=== PATIENT | female | born 1940 | race Caucasian/White ===

== ENCOUNTER 2024-06-26 12:30 | Inpatient (IN) | payer OTHER, MEDICARE ==
[2024-06-26 14:24] VITALS: BMI 16.6
[2024-06-26 14:27] LABS: ABSOLUTE IMMATURE GRANULOCYTES 0.02 x10^3/uL (0.0-0.031); BASOPHILS # 0.04 x10^3/uL (0.01-0.08); EOSINOPHIL % 0.9 % (0.7-5.8); EOSINOPHILS # 0.08 x10^3/uL (0.04-0.36); HEMATOCRIT 38.5 % (34.1-44.9); HEMOGLOBIN 12.3 g/dL (11.2-15.7); MCHC 31.9 g/dl (32.2-35.5); MEAN CELL VOLUME 90.4 fl (79.4-94.8); MEAN PLT VOLUME 11.4 fl (9.4-12.3); MONOCYTE # 0.47 x10^3/uL (0.24-0.86); MONOCYTE % 5.5 % (4.7-12.5); PLATELET COUNT 193 x10^3/uL (182-369); RDW 12.9 % (12.5-17.0)
[2024-06-26 14:29] LABS: VENOUS BASE EXCESS 1.7 mmol/L (-2-2); VENOUS O2 SATURATION 50.4 % (70-80); VENOUS PCO2 45.3 mmHg (38-52); VENOUS PH 7.394 (7.310-7.410)
[2024-06-26 14:36] LABS: PROTHROMBIN TIME (PATIENT) 10.9 SEC (9.7-13.0)
[2024-06-26 14:39] LABS: ACTIVATED PTT 31.1 SECONDS (25.2-36.5)
[2024-06-26 14:51] LABS: POTASSIUM 3.8 mmol/L (3.5-5.1)
[2024-06-26 14:59] LABS: ALBUMIN 3.4 g/dl (3.4-5.0); BLOOD UREA NITROGEN 22.8 mg/dL (7-18)
[2024-06-26 15:00] LABS: BILIRUBIN,TOTAL 0.5 mg/dL (0.2-1); TOT PROT 6.5 g/dl (6.4-8.2)
[2024-06-26 15:02] LABS: CREATININE 0.7 mg/dL (0.55-1.3)
[2024-06-26 18:15] LABS: URINE APPEARANCE CLOUDY; URINE BILIRUBIN NEGATIVE (NEGATIVE); URINE COLOR YELLOW; URINE GLUCOSE (UA) NEGATIVE (NEGATIVE); URINE KETONE NEGATIVE (NEGATIVE); URINE LEUK ESTERASE NEGATIVE (NEGATIVE); URINE NITRITE NEGATIVE (NEGATIVE); URINE PROTEIN NEGATIVE (NEGATIVE)
[2024-06-26] MEDS ORDERED: ACETAMINOPHEN 325 MG TABLET (FP) PO PRN (18:52)
[2024-06-26] MEDS ORDERED: MAGNESIUM HYDROX 2400MG/30ML ORAL SUSPENSION 30 ML CUP PO PRN (18:59)
[2024-06-26] MEDS ORDERED: LUMIGAN OD SCH (19:00)
[2024-06-26] MEDS: SODIUM CHLORIDE 1,000 ML IV SCH (19:59)
[2024-06-26] MEDS ORDERED: ACETAMINOPHEN 1000 MG/100 ML BAG IVPB PRN (20:56)
[2024-06-26] MEDS: LABETALOL HCL 100 MG TABLET (FP) PO SCH (21:48)
[2024-06-26 21:50] VITALS: RESP 18
[2024-06-26] MEDS: DOCUSATE SODIUM 100 MG CAPSULE (FP) PO SCH (21:50)
[2024-06-26] MEDS: LATANOPROST 0.005% OPHTH SOLN 2.5ML BOTTLE OD SCH (23:19)
[2024-06-27 08:18] LABS: ABSOLUTE IMMATURE GRANULOCYTES 0.01 x10^3/uL (0.0-0.031); BASOPHILS # 0.05 x10^3/uL (0.01-0.08); EOSINOPHILS # 0.06 x10^3/uL (0.04-0.36); HEMATOCRIT 39.4 % (34.1-44.9); HEMOGLOBIN 12.3 g/dL (11.2-15.7); MCHC 31.2 g/dl (32.2-35.5); MEAN CELL VOLUME 91.4 fl (79.4-94.8); MEAN PLT VOLUME 11.7 fl (9.4-12.3); MONOCYTE # 0.33 x10^3/uL (0.24-0.86); MONOCYTE % 5.5 % (4.7-12.5); PLATELET COUNT 181 x10^3/uL (182-369); RDW 12.8 % (12.5-17.0)
[2024-06-27 08:37] LABS: POTASSIUM 3.7 mmol/L (3.5-5.1)
[2024-06-27 08:39] LABS: CALCIUM 9.4 mg/dL (8.5-10.1)
[2024-06-27 08:40] LABS: MAGNESIUM 2.4 mg/dL (1.8-2.4)
[2024-06-27 08:42] LABS: BLOOD UREA NITROGEN 21.1 mg/dL (7-18)
[2024-06-27 08:43] LABS: CREATININE 0.8 mg/dL (0.55-1.3); PHOSPHOROUS 3.7 mg/dL (2.5-4.9)
[2024-06-27 08:45] LABS: BILIRUBIN,TOTAL 0.7 mg/dL (0.2-1); TOT PROT 5.8 g/dl (6.4-8.2)
[2024-06-27] MEDS: ENOXAPARIN NA (PORCINE) 40 MG/0.4 ML DISP.SYRIN SQ SCH (10:05)
[2024-06-27] MEDS: ACETAMINOPHEN 1000 MG/100 ML BAG IVPB PRN (10:06)
[2024-06-27 15:20] VITALS: BP 125/64; PULSE 57; TEMP 98.6
== END 2024-06-27 18:41 | DRG 312 ==
LOC: JER 12:30 → JERBED 17:02 → J4W 21:08
PROVIDERS: ADMIT Internal Medicine
DX: R55 Syncope and collapse (principal); E43 Unspecified severe protein-calorie malnutrition; D68.00 Von Willebrand disease, unspecified; R64 Cachexia; Z68.1 Body mass index [BMI] 19.9 or less, adult; I10 Essential (primary) hypertension; K59.00 Constipation, unspecified; E86.0 Dehydration; M17.0 Bilateral primary osteoarthritis of knee; R82.71 Bacteriuria
CPT/HCPCS: 0241U-QW; 36415; 70450-TC; 70551-TC; 71045-TC-FY; 80053; 81003; 82140; 82803; 83605; 83735; 84100; 84484; 85025; 85610; 85730; 86850; 86900; 86901; 87040; 87086; 87186; 93005; 93010; 93306-TC; 97116-GP; 97162-GP; 99285-25; J0131